=== PATIENT | female | born 1955 | race African-American/Black ===

== ENCOUNTER 2018-04-23 08:46 | Outpatient (CLI) | payer BC ==
--- NOTE | 2018-04-23 11:26 | MMO ---
BILATERAL DIGITAL SCREENING MAMMOGRAMS: Date: 04/23/18 This patient's mammogram was interpreted with the assistance of computer-aided detection. Comparison made with exams of 05/31/16 and 07/25/14. FINDINGS: There are scattered fibroglandular densities with benign calcifications. No suspicious masses or calc ifications are seen. No architectural distortion is identified. IMPRESSION: BIRADS 2: Benign Finding(s) Return to annual mammographic screening. Exam interpreted in consultation with Dr. Ashley Flynn and Dr. Dustin Palomo, who concur. POS: [facility]
== END 2018-04-23 08:47 | disposition home or self-care (01) ==
LOC: SCSMAMMO 08:46
PROVIDERS: ATTEND Family Medicine
DX: Z12.31 Encounter for screening mammogram for malignant neoplasm of breast (principal)
CPT/HCPCS: 77067

== ENCOUNTER 2019-04-10 14:00 | Outpatient (CLI) | payer BC ==
[2019-04-10 14:29] LABS: #Basophils 0.1 thou/uL (0.0-0.2); #Eosinphils 0.1 thou/uL (0.0-0.7); #Monocytes 0.2 thou/uL (0.11-0.59); #Neutrophils 3.3 thou/uL (1.40-6.50); %Basophils 1.6 % (0.0-1.0); %Lymphocytes 34.4 % (21.0-51.0); %Monocytes 4.1 % (0.0-10.0); Hemoglobin 13.1 g/dL (12.0-16.0); Mean Corpuscular HGB CONC 33.5 g/dL (32.0-36.0); Mean Corpuscular Hemoglobin 30.4 pg (27.0-31.0); Mean Corpuscular Volume 90.7 fL (78.0-98.0); Mean Platelet Volume 5.6 fL (7.4-10.4); Platelet Count 324 thou/uL (130-400); RBC Distribution Width 11.9 % (11.5-14.5); Red Blood Cell (RBC) Count 4.33 mill/uL (4.20-5.40); White Blood Cell (WBC) Count 5.7 thou/uL (4.8-10.8)
[2019-04-10 14:34] LABS: PTT 26.7 SEC (22.9-36.1); Prothrombin Time 13.5 SEC (12.0-14.7)
[2019-04-10 14:40] LABS: ALT (SGPT) 11 U/L (8-55); AST (SGOT) 13 U/L (5-34); Albumin 4.6 g/dL (3.4-4.8); Alkaline Phosphatase 90 U/L (40-150); Anion Gap 14 mmol/L (10-20); BUN (Urea Nitrogen) 16 mg/dL (9.8-20.1); Bilirubin, Total 0.5 mg/dL (0.2-1.2); Calc. Creatinine Clearance 0 mL/min (70-130); Calcium 10.1 mg/dL (7.8-10.44); Carbon Dioxide 27 mmol/L (23-31); Chloride 105 mmol/L (98-107); Estimated GFR-MDRD Greater than 90; Globulin 3.3 g/dL (2.4-3.5); Glucose 98 mg/dL (80-115); Potassium 3.8 mmol/L (3.5-5.1); Protein, Total 7.9 g/dL (6.0-8.3); Sodium 142 mmol/L (136-145)
--- NOTE | 2019-04-10 15:56 | RAD ---
RADIOGRAPH CHEST 2 VIEWS: 04/10/19 HISTORY: 63-year-old female for preoperative evaluation. FINDINGS: There is no air space density, pulmonary edema, pleural effusion, pneumothorax, or cardiomegaly. IMPRESSION: No acute cardiopulmonary findings. jn [] POS: [facility]
[2019-04-10 16:39] LABS: Hemoglobin A1c 5.6 % (4.0-6.0)
== END 2019-04-10 14:01 | disposition home or self-care (01) ==
LOC: SCSRAD 14:00
PROVIDERS: ATTEND Family Medicine
DX: M48.061 Spinal stenosis, lumbar region without neurogenic claudication (principal); E11.9 Type 2 diabetes mellitus without complications; M51.26 Other intervertebral disc displacement, lumbar region
CPT/HCPCS: 36415; 71046; 80053; 83036; 85025; 85610; 85730; 86850; 86900; 86901

== ENCOUNTER 2019-04-15 13:16 | Outpatient (CLI) | payer BC ==
--- NOTE | 2019-04-15 13:49 | CT ---
CT Lumbar Spine WO Con History: Spinal stenosis Comparison: None. Findings: The aortic contour is nonaneurysmal. No retroperitoneal adenopathy. No hydronephrosis. No fracture. No malalignment. There is narrowing of the interspinous space through out the lumbar spine. Levels are as follows: L1/L2: Mild degenerative disc space height loss. Moderate hypertrophic facet changes. Moderate bilate ral neural foraminal narrowing. Spinal canal narrowing evaluation is limited. L2-3: Circumferential disc height loss and disc bulge. Moderate facet arthropathy. Moderate bilateral neural foraminal narrowing. There is mild effacement of ventral CSF space and the spinal canal measuring 8 mm. L3/L4: Moderate changes space height loss. Circumferential disc bulge. Severe facet arthropathy. 2 mm anterolisthesis. Moderate to severe bilateral neural foraminal narrowing. Spinal canal is narrowed to approximate 6 mm. L4-5: There is large central disc extrusion with craniad extension. Severe narrowing of the spinal ca nal to approximately 3 mm. Severe facet arthropathy. Severe right and moderate to severe left neural foraminal narrowing. There is also 2 mm anterolisthesis. L5/S1: Moderate degenerative disc space height loss is circumferential disc bulge. Severe facet arthr opathy. Moderate bilateral neural foraminal narrowing. Impression: Multilevel high-grade spondylosis worst at L4/L with suggestion of a disc extrusion with craniad extension causing severe spinal canal narrowing and neural foraminal narrowing. Neurosurgical consultation advised.
--- NOTE | 2019-04-15 14:25 | RAD ---
EXAM: Anterior and lateral views of the thoracic and lumbosacral spine (scoliosis series) HISTORY: Spinal stenosis at L4/5 COMPARISON: None FINDINGS: Anterior and lateral views of the thoracic and lumbar spine shows normal height and alignme nt of the vertebral bodies without fracture or subluxation. No significant scoliosis is seen. Mild narrowing and intervertebral disc spaces is seen in the thoracic spine with moderate narrowing in the lumbar spine. Small osteophytes are seen throughout. IMPRESSION: Degenerative changes of the spine without acute osseous abnormality.
== END 2019-04-15 13:17 | disposition home or self-care (01) ==
LOC: CT 13:16
PROVIDERS: ATTEND Family Medicine
DX: M48.061 Spinal stenosis, lumbar region without neurogenic claudication (principal); M51.26 Other intervertebral disc displacement, lumbar region; M47.816 Spondylosis without myelopathy or radiculopathy, lumbar region
CPT/HCPCS: 72081; 72131

== ENCOUNTER 2019-05-27 13:21 | Outpatient (CLI) | payer BC ==
[2019-05-27 13:52] LABS: Hemoglobin 11.7 g/dL (12.0-16.0); Mean Corpuscular HGB CONC 32.8 g/dL (32.0-36.0); Mean Corpuscular Hemoglobin 29.7 pg (27.0-31.0); Mean Corpuscular Volume 90.5 fL (78.0-98.0); Mean Platelet Volume 5.8 fL (7.4-10.4); Platelet Count 357 thou/uL (130-400); RBC Distribution Width 14.5 % (11.5-14.5); Red Blood Cell (RBC) Count 3.94 mill/uL (4.20-5.40); White Blood Cell (WBC) Count 4.7 thou/uL (4.8-10.8)
[2019-05-27 14:08] LABS: ALT (SGPT) 10 U/L (8-55); AST (SGOT) 13 U/L (5-34); Albumin 4.5 g/dL (3.4-4.8); Alkaline Phosphatase 126 U/L (40-150); Anion Gap 13 mmol/L (10-20); BUN (Urea Nitrogen) 10 mg/dL (9.8-20.1); Bilirubin, Direct 0.2 mg/dL (0.1-0.3); Bilirubin, Total 0.4 mg/dL (0.2-1.2); Calc. Creatinine Clearance 0 mL/min (70-130); Carbon Dioxide 26 mmol/L (23-31); Cardiac Risk 3.3 (Less than 4.5); Chloride 108 mmol/L (98-107); Cholesterol 201 mg/dl (< 200 Desired); Estimated GFR-MDRD 88; Globulin 3.4 g/dL (2.4-3.5); Glucose 106 mg/dL (80-115); HDL Cholesterol 61 mg/dL (>60 Neg Risk); LDL Cholesterol, Calculated 124 mg/dL; Potassium 3.6 mmol/L (3.5-5.1); Protein, Total 7.9 g/dL (6.0-8.3); Sodium 143 mmol/L (136-145); Triglycerides 78 mg/dL (Less than 150)
[2019-05-27 14:43] LABS: Thyroid Stimulating Hormone 0.7622 uIU/mL (0.35-4.94)
--- NOTE | 2019-05-27 15:50 | RAD ---
LUMBAR SPINE 2 VIEWS: Date: 05/27/19 HISTORY: Lumbar pain. Postop imaging. Lumbar surgery 04/18/19. FINDINGS: Postoperative changes are noted in the lower lumbar spine. Pedicle screws and rods transfix L3, L4, a nd L5. Interbody implants at L3-4 and L4-5 are noted. Slight scoliotic curvature is again seen at thoracolumbar spine. The lumbar vertebra maintain height in the lateral view. There is a slight anterolisthesis at L3-4 an d at L4-5. Minimal anterolisthesis L5-S1 is unchanged. Mild degenerative osteophytes. IMPRESSION: Postoperative changes and degenerative changes as described. POS: [facility]
[2019-05-27 16:39] LABS: Vitamin D, 25 Hydroxy 45.6 ng/ml (> 30.0)
[2019-05-27 16:55] LABS: Folate (Folic Acid) 13.9 ng/mL (7.0-31.4)
== END 2019-05-27 13:22 | disposition home or self-care (01) ==
LOC: SCSRAD 13:21
DX: E56.9 Vitamin deficiency, unspecified (principal); M47.816 Spondylosis without myelopathy or radiculopathy, lumbar region; Z98.1 Arthrodesis status; Z79.899 Other long term (current) drug therapy
CPT/HCPCS: 72100; 80053; 80061; 82248; 82306; 82607; 82746; 84425; 84443; 85027

== ENCOUNTER 2019-05-29 10:49 | Outpatient (CLI) | payer BC ==
--- NOTE | 2019-05-29 12:15 | BD ---
DEXA BONE DENSITY STUDY: Date: 05/29/19 HISTORY: 64-year-old postmenopausal female for screening. COMPARISON: None. FINDINGS: LEFT HIP: Femoral Neck: 0.770 T-Score: -0.7 Total Femur: 0.916 T-Score: -0.2 RIGHT HIP: Femoral Neck: 0.710 T-Score: -1.3 Total Femur: 0.915 T-Score: -0.2 IMPRESSION: Osteopenia. This patient has a 10 year WHO fracture risk of a major osteoporotic fracture of 7.9% and hip fracture is 0.6%. POS: [facility]
== END 2019-05-29 10:50 | disposition home or self-care (01) ==
LOC: BICMAMMO 10:49
PROVIDERS: ATTEND Family Medicine
DX: M81.0 Age-related osteoporosis without current pathological fracture (principal); M85.852 Other specified disorders of bone density and structure, left thigh; M85.851 Other specified disorders of bone density and structure, right thigh
CPT/HCPCS: 77080

== ENCOUNTER 2019-08-09 15:20 | Outpatient (CLI) | payer BC ==
[~2019-08-09 15:20] MED LIST: Iopamidol 370 76% 100 ML VIAL ONE
[2019-08-09 16:00] LABS: Estimated GFR-MDRD - POC Greater than 90
--- NOTE | 2019-08-09 17:07 | CT ---
CT neck soft tissues with contrast: DATE: 08/09/2019 HISTORY: 64-year-old female with ICD-10: "Kidney 11.1, submandibular gland hypertrophy" Patient told the public health technologist that there is a left-sided neck mass 2 weeks ago, but currently not palpable. COMPARISON: None available FINDINGS: At midline of the submandibular space, just deep to the platysma muscle and superficial to the anteri or bellies of the digastric muscles, there is a soft tissue density lobular small mass measuring approximately 1 x 1 x 0.7 cm. There are mildly prominent blood vessels around this. No associated shalonda cification or surrounding edema. Etiology of this is uncertain. It is located 3 cm posterior to the mandibular symphysis, which is not a typical location for level 1 submental lymph nodes. Otherwise, there is no cervical lymphadenopathy elsewhere. The bilateral submandibular glands are slightly large, but with no evidence of discrete mass or surro unding fat stranding. The sublingual glands are bilaterally also symmetrically enlarged. The parotid, carotid, retropharyngeal, parapharyngeal, pharyngeal mucosal, wheel roller, and posterior cerv ical, spaces, are unremarkable. Thyroid gland is diffusely mildly to moderately large, especially the right lobe. Unremarkable larynx. IMPRESSION: 1.) Bilaterally symmetrical enlargement of submandibular and sublingual glands, nonspecific. 2) a small soft tissue density mass at midline submandibular space of unknown etiology. Perhaps this represents enlarged lymph node, but the location and appearance is unusual. The other possibility includes small vascular malformation. Recommend serial follow-up CTs of the neck, beginning in 4 lisa hs.
== END 2019-08-09 15:21 | disposition home or self-care (01) ==
LOC: SCSCT 15:20
PROVIDERS: ATTEND Student in an Organized Health Care Education/Training Program
DX: K11.1 Hypertrophy of salivary gland (principal); M79.89 Other specified soft tissue disorders
CPT/HCPCS: 70491; 82565; Q9967

== ENCOUNTER 2021-10-10 19:35 | Emergency (ER) | payer OTHER, BC | END 2021-10-10 21:49 | disposition home or self-care (01) | LOC: ERS 19:35 | DX: S09.90XA Unspecified injury of head, initial encounter (principal); I10 Essential (primary) hypertension; E11.9 Type 2 diabetes mellitus without complications; K21.9 Gastro-esophageal reflux disease without esophagitis; E78.5 Hyperlipidemia, unspecified; Z87.891 Personal history of nicotine dependence; V49.9XXA Car occupant (driver) (passenger) injured in unspecified traffic accident, initial encounter | CPT/HCPCS: 99283 ==

== ENCOUNTER 2022-06-26 21:29 | Inpatient (IN) | payer BC ==
[~2022-06-26 21:29] MED LIST changes: -Iopamidol 370 76% 100 ML VIAL ONE; +Iopamidol-370 76% 500 ML 1 ML ONE
[2022-06-26] MEDS ORDERED: Ondansetron PF 4 MG/2 ML Vial ONE (22:49)
[2022-06-26] MEDS ORDERED: Morphine 4 MG/ML VIAL ONE (22:49)
[2022-06-26 23:04] LABS: #Lymphocytes 1.6 thou/uL (1.20-3.40); #Monocytes 0.4 thou/uL (0.11-0.59); #Neutrophils 10.7 thou/uL (1.40-6.50); %Basophils 0.1 % (0.0-1.0); %Eosinophils 0.1 % (0.0-10.0); %Lymphocytes 12.2 % (21.0-51.0); %Monocytes 3.2 % (0.0-10.0); %Neutrophils 84.4 % (42.0-75.0); Mean Corpuscular HGB CONC 34.5 g/dL (32.0-36.0); Mean Corpuscular Hemoglobin 33.2 pg (27.0-31.0); Mean Corpuscular Volume 96.1 fL (78.0-98.0); Mean Platelet Volume 7.1 fL (7.4-10.4); Platelet Count 289 thou/uL (130-400); RBC Distribution Width 12.1 % (11.5-14.5); Red Blood Cell (RBC) Count 4.21 mill/uL (4.20-5.40); White Blood Cell (WBC) Count 12.7 thou/uL (4.8-10.8)
[2022-06-26 23:23] LABS: Acetaminophen Less than 10.0 mcg/mL (10.0-30.0); Alcohol Less than 10 mg/dL (Less than 10); CK (CPK) 161 U/L (29-168); Salicylate Less than 8.0 mg/dL (15.0-30.0)
[2022-06-26 23:25] LABS: ALT (SGPT) 13 U/L (8-55); AST (SGOT) 19 U/L (5-34); Albumin 4.7 g/dL (3.4-4.8); Alkaline Phosphatase 99 U/L (40-110); Anion Gap 15 mmol/L (10-20); BUN (Urea Nitrogen) 9 mg/dL (9.8-20.1); Bilirubin, Total 0.7 mg/dL (0.2-1.2); Calc. Creatinine Clearance 0 mL/min (70-130); Calcium 10.1 mg/dL (7.8-10.44); Carbon Dioxide 25 mmol/L (23-31); Chloride 103 mmol/L (98-107); Estimated GFR 78; Globulin 3.3 g/dL (2.4-3.5); Glucose 184 mg/dL (80-115); Potassium 3.4 mmol/L (3.5-5.1); Sodium 140 mmol/L (136-145)
[2022-06-26 23:57] LABS: Bilirubin Negative (Negative); Blood, Urine Negative (Negative); Clarity Extra Turbid (Clear); Glucose, Urine (Dipstick) 200 mg/dL (Negative); Ketone, Urine 10 mg/dL (Negative); Leukocyte Negative Leu/uL (Negative); Nitrite Negative (Negative); Protein, Urine (Dipstick) Negative (Neg-Trace); Specific Gravity, Urine 1.012 (1.002-1.036); Urobilinogen Normal mg/dL (Less than 2)
[2022-06-27 00:06] LABS: Amphetamine Not Detected (NotDetected); Barbiturates Screen Not Detected (NotDetected); Benzodiazepine Screen Not Detected (NotDetected); Cocaine Metabolite Screen Not Detected (NotDetected); Methadone Not Detected (NotDetected); Methamphetamine Not Detected (NotDetected); Opiate Screen Not Detected (NotDetected); Oxycodone Screen Not Detected (NotDetected); Phencyclidine (PCP) Not Detected (NotDetected); THC/Cannabinoid Screen Not Detected (NotDetected); Tricyclic Screen Not Detected (NotDetected)
[2022-06-27] MEDS ORDERED: Benzocaine 20% Spray 60 ML CAN ONE (01:42)
[2022-06-27] MEDS ORDERED: hydrALAZINE 20 MG/ML VIAL ONE (01:57)
[2022-06-27] MEDS ORDERED: Ondansetron PF 4 MG/2 ML Vial ONE (02:59)
[2022-06-27] MEDS ORDERED: Morphine 2 MG/ML VIAL ONE (03:14)
[2022-06-27] MEDS ORDERED: Acetaminophen 650 MG Suppository PR PRN (03:40)
[2022-06-27] MEDS ORDERED: Dextrose 5% in Water 1,000 ML IV PRN (03:42)
[2022-06-27] MEDS ORDERED: HumaLOG 300 UNITS/3 ML VIAL SC PRN ×2 (03:42)
[2022-06-27] MEDS ORDERED: Dextrose 50% Abboject 50 ML SYRINGE SLOW IVP PRN (03:42)
[2022-06-27] MEDS: Sodium Chloride 0.9% 1,000 ML IV SCH ×2 (05:11→14:52)
[2022-06-27 06:16] LABS: #Lymphocytes 0.5 thou/uL (1.20-3.40); #Monocytes 0.2 thou/uL (0.11-0.59); #Neutrophils 10.1 thou/uL (1.40-6.50); %Eosinophils 0.1 % (0.0-10.0); %Lymphocytes 4.9 % (21.0-51.0); %Monocytes 1.7 % (0.0-10.0); %Neutrophils 93.3 % (42.0-75.0); Hemoglobin 12.9 g/dL (12.0-16.0); Mean Corpuscular Hemoglobin 32.5 pg (27.0-31.0); Mean Corpuscular Volume 95.4 fL (78.0-98.0); Platelet Count 257 thou/uL (130-400); Red Blood Cell (RBC) Count 3.98 mill/uL (4.20-5.40); White Blood Cell (WBC) Count 10.9 thou/uL (4.8-10.8)
[2022-06-27 06:38] LABS: Anion Gap 16 mmol/L (10-20); BUN (Urea Nitrogen) 7 mg/dL (9.8-20.1); Calc. Creatinine Clearance 0 mL/min (70-130); Calcium 9.5 mg/dL (7.8-10.44); Carbon Dioxide 24 mmol/L (23-31); Chloride 103 mmol/L (98-107); Estimated GFR 79; Glucose 139 mg/dL (80-115); Potassium 3.7 mmol/L (3.5-5.1); Sodium 139 mmol/L (136-145)
[2022-06-27] MEDS ORDERED: hydrALAZINE 20 MG/ML VIAL SLOW IVP PRN (07:03)
[2022-06-27 07:25] VITALS: BMI 22.4
[2022-06-27] MEDS ORDERED: Chloraseptic Spray 180 ml Bottle PO PRN (14:16)
[2022-06-27] MEDS: Ondansetron PF 4 MG/2 ML Vial IVP PRN (17:42)
[2022-06-27] MEDS: Morphine 2 MG/ML VIAL SLOW IVP PRN (20:10)
[2022-06-28] MEDS: Ondansetron PF 4 MG/2 ML Vial IVP PRN ×2 (00:21→13:30)
[2022-06-28] MEDS: Sodium Chloride 0.9% 1,000 ML IV SCH ×3 (01:48→21:23)
[2022-06-28 06:09] LABS: Anion Gap 13 mmol/L (10-20); BUN (Urea Nitrogen) 9 mg/dL (9.8-20.1); Calc. Creatinine Clearance 77 mL/min (70-130); Calcium 9.1 mg/dL (7.8-10.44); Carbon Dioxide 24 mmol/L (23-31); Chloride 108 mmol/L (98-107); Estimated GFR 93; Glucose 97 mg/dL (80-115); Sodium 142 mmol/L (136-145)
[2022-06-28 06:21] LABS: Band 1 % (5-11); Eosinophils 2 % (0-10); Hemoglobin 11.8 g/dL (12.0-16.0); Lymphocytes 40 % (21-51); MDiff Complete? YES; Mean Corpuscular HGB CONC 34.2 g/dL (32.0-36.0); Mean Corpuscular Hemoglobin 32.7 pg (27.0-31.0); Mean Corpuscular Volume 95.7 fL (78.0-98.0); Mean Platelet Volume 7.1 fL (7.4-10.4); Monocytes 5 % (0-10); Neutrophil 37 % (42-75); Platelet Count 235 thou/uL (130-400); Platelet Morphology Comment Appears Adequate; RBC Distribution Width 11.9 % (11.5-14.5); RBC Morphology Normal; Reactive Lymphocytes 13 % (0-10); Red Blood Cell (RBC) Count 3.61 mill/uL (4.20-5.40); White Blood Cell (WBC) Count 3.9 thou/uL (4.8-10.8)
[2022-06-28] MEDS ORDERED: Potassium Chloride 20 MEQ in Premix Bag 1 BAG IVPB SCH (08:00)
[2022-06-28] MEDS ORDERED: MD-Gastroview 120 ML BOT ONE (13:23)
[2022-06-28] MEDS: Morphine 2 MG/ML VIAL SLOW IVP PRN (13:29)
[2022-06-29] MEDS: Sodium Chloride 0.9% 1,000 ML IV SCH (02:22)
[2022-06-29 06:08] LABS: Hemoglobin 12.3 g/dL (12.0-16.0); Lymphocytes 68 % (21-51); MDiff Complete? YES; Mean Corpuscular HGB CONC 33.7 g/dL (32.0-36.0); Mean Corpuscular Hemoglobin 32.5 pg (27.0-31.0); Mean Corpuscular Volume 96.5 fL (78.0-98.0); Neutrophil 32 % (42-75); Platelet Count 241 thou/uL (130-400); Platelet Morphology Comment Appears Adequate; RBC Distribution Width 11.7 % (11.5-14.5); RBC Morphology Normal; Red Blood Cell (RBC) Count 3.79 mill/uL (4.20-5.40); White Blood Cell (WBC) Count 3.8 thou/uL (4.8-10.8)
[2022-06-29 06:12] LABS: Chloride 108 mmol/L (98-107); Potassium 3.6 mmol/L (3.5-5.1); Sodium 141 mmol/L (136-145)
[2022-06-29 06:21] LABS: BUN (Urea Nitrogen) 8 mg/dL (9.8-20.1); Calc. Creatinine Clearance 74 mL/min (70-130); Calcium 9.2 mg/dL (7.8-10.44); Carbon Dioxide 20 mmol/L (23-31); Estimated GFR 88; Glucose 86 mg/dL (80-115)
[2022-06-29 06:39] LABS: Anion Gap 17 mmol/L (10-20)
[2022-06-29 08:41] VITALS: TEMP 97.8
[2022-06-29 12:54] VITALS: BP 176/74
== END 2022-06-29 15:00 | disposition home or self-care (01) | DRG 390 ==
LOC: ERS 21:29 → SURG A 06-27 01:26
PROVIDERS: ADMIT Internal Medicine; ATTEND Internal Medicine
PROC: 0D9670Z Drainage of Stomach with Drainage Device, Via Natural or Artificial Opening (ICD-10-PCS; principal; 2022-06-27)
DX: K56.51 Intestinal adhesions [bands], with partial obstruction (principal); E11.9 Type 2 diabetes mellitus without complications; K21.9 Gastro-esophageal reflux disease without esophagitis; E78.5 Hyperlipidemia, unspecified; Z66 Do not resuscitate; I10 Essential (primary) hypertension; Z98.890 Other specified postprocedural states; Z90.710 Acquired absence of both cervix and uterus; Z88.1 Allergy status to other antibiotic agents; Z88.8 Allergy status to other drugs, medicaments and biological substances; Z79.899 Other long term (current) drug therapy
CPT/HCPCS: 36415; 36416; 71045; 74018; 74177; 74250; 80048; 80053; 80306; 80307; 81003; 82550; 83605; 84484; 85025; 86850; 86900; 86901; 93005; 94760; J0360; J2270; J2405; J3480; J7050; Q9963; Q9967

== ENCOUNTER 2023-06-21 06:32 | Inpatient (IN) | payer BC ==
[2023-06-21 07:29] LABS: #Monocytes 0.1 thou/uL (0.11-0.59); #Neutrophils 10.4 thou/uL (1.40-6.50); %Basophils 0.1 % (0.0-1.0); %Lymphocytes 4.4 % (21.0-51.0); %Monocytes 1.1 % (0.0-10.0); %Neutrophils 94.1 % (42.0-75.0); Hematocrit 41.7 % (36.0-47.0); Hemoglobin 14.3 g/dL (12.0-16.0); Mean Corpuscular HGB CONC 34.3 g/dL (32.0-36.0); Mean Corpuscular Hemoglobin 31.4 pg (27.0-31.0); Mean Corpuscular Volume 91.6 fl (78.0-98.0); Platelet Count 312 10x3/uL (130-400); RBC Distribution Width 11.9 % (11.5-14.5); Red Blood Cell (RBC) Count 4.55 mill/uL (4.20-5.40); White Blood Cell (WBC) Count 11.1 10x3/uL (4.8-10.8)
[2023-06-21 07:50] LABS: ALT (SGPT) 11 U/L (8-55); AST (SGOT) 19 U/L (5-34); Albumin 4.8 g/dL (3.4-4.8); Alkaline Phosphatase 104 U/L (40-110); Anion Gap 16 mmol/L (10-20); BUN (Urea Nitrogen) 15 mg/dL (9.8-20.1); Bilirubin, Total 0.5 mg/dL (0.2-1.2); Calc. Creatinine Clearance 0 mL/min (70-130); Calcium 10.1 mg/dL (7.8-10.44); Carbon Dioxide 21 mmol/L (23-31); Chloride 100 mmol/L (98-107); Estimated GFR 58; Globulin 3.5 g/dL (2.4-3.5); Glucose 181 mg/dL (80-115); Lipase Less than 4 U/L (8-78); Potassium 4.2 mmol/L (3.5-5.1); Protein, Total 8.3 g/dL (5.8-8.1); Sodium 133 mmol/L (136-145)
[2023-06-21] MEDS ORDERED: Ondansetron PF 4 MG/2 ML Vial ONE (08:19)
[2023-06-21] MEDS ORDERED: Morphine 4 MG/ML VIAL ONE (08:19)
[2023-06-21 08:29] LABS: Troponin I Less than 0.010 ng/mL (< 0.028)
[2023-06-21] MEDS ORDERED: Iopamidol-370 76% 500 ML MDV (1 ML CHARGE) ONE (09:19)
[2023-06-21] MEDS ORDERED: Acetaminophen 325 MG TAB PO PRN (09:59)
[2023-06-21] MEDS ORDERED: Ondansetron ODT 4 MG TAB PO PRN (09:59)
[2023-06-21] MEDS ORDERED: MD-Gastroview 120 ML BOT ONE (10:00)
[2023-06-21] MEDS ORDERED: Phenol 118 ML BOT PO PRN (10:05)
[2023-06-21] MEDS ORDERED: Lidocaine 4% Topical Sol 50 ML BOT TOP SCH (11:15)
[2023-06-21] MEDS: Ondansetron PF 4 MG/2 ML Vial IVP PRN (13:35)
[2023-06-21] MEDS: Morphine 4 MG/ML VIAL SLOW IVP PRN (13:35)
[2023-06-21] MEDS: Sodium Chloride 0.9% 1,000 ML IV SCH (13:36)
[2023-06-21 16:55] VITALS: BMI 24.8
[2023-06-22] MEDS: Sodium Chloride 0.9% 1,000 ML IV SCH ×2 (00:49→13:01)
[2023-06-22] MEDS: Morphine 4 MG/ML VIAL SLOW IVP PRN ×3 (02:14→20:39)
[2023-06-22] MEDS: Ondansetron PF 4 MG/2 ML Vial IVP PRN ×3 (02:15→20:39)
[2023-06-22] MEDS ORDERED: Glucagon 1 MG/ML KIT IM PRN (07:34)
[2023-06-22] MEDS ORDERED: Dextrose 50% Abboject 50 ML SYRINGE SLOW IVP PRN (07:34)
[2023-06-22] MEDS ORDERED: Dextrose 5% in Water 1,000 ML IV PRN (07:34)
[2023-06-22 09:10] LABS: #Monocytes 0.5 thou/uL (0.11-0.59); #Neutrophils 4.5 thou/uL (1.40-6.50); %Basophils 0.3 % (0.0-1.0); %Eosinophils 0.2 % (0.0-10.0); %Lymphocytes 21.7 % (21.0-51.0); %Neutrophils 69.8 % (42.0-75.0); Hematocrit 37.1 % (36.0-47.0); Hemoglobin 12.6 g/dL (12.0-16.0); Mean Corpuscular Hemoglobin 31.6 pg (27.0-31.0); Mean Platelet Volume 9.1 fL (7.4-10.4); Platelet Count 284 10x3/uL (130-400); RBC Distribution Width 12.4 % (11.5-14.5); Red Blood Cell (RBC) Count 3.99 mill/uL (4.20-5.40); White Blood Cell (WBC) Count 6.4 10x3/uL (4.8-10.8)
[2023-06-22 09:38] LABS: Anion Gap 14 mmol/L (10-20); BUN (Urea Nitrogen) 22 mg/dL (9.8-20.1); Calc. Creatinine Clearance 60 mL/min (70-130); Calcium 9.4 mg/dL (7.8-10.44); Carbon Dioxide 23 mmol/L (23-31); Chloride 110 mmol/L (98-107); Estimated GFR 61; Glucose 104 mg/dL (80-115); Potassium 3.6 mmol/L (3.5-5.1); Sodium 143 mmol/L (136-145)
[2023-06-22] MEDS: Benzocaine/Menthol 1 LOZ LOZ PO PRN (18:30)
[2023-06-22] MEDS ORDERED: Lidocaine 2% Viscous Solution 10 ML, Aluminum & Magnesium Hydroxide 30 ML SSW SCH (23:30)
[2023-06-23] MEDS: Morphine 4 MG/ML VIAL SLOW IVP PRN ×2 (00:31→04:45)
[2023-06-23] MEDS: Sodium Chloride 0.9% 1,000 ML IV SCH ×2 (02:04→08:56)
[2023-06-23] MEDS: Ondansetron PF 4 MG/2 ML Vial IVP PRN ×2 (04:45→10:53)
[2023-06-23 06:56] LABS: #Monocytes 0.4 thou/uL (0.11-0.59); #Neutrophils 4.7 thou/uL (1.40-6.50); %Basophils 0.3 % (0.0-1.0); %Eosinophils 0.4 % (0.0-10.0); %Lymphocytes 26.4 % (21.0-51.0); %Monocytes 6.2 % (0.0-10.0); %Neutrophils 66.6 % (42.0-75.0); Hematocrit 34.6 % (36.0-47.0); Hemoglobin 11.5 g/dL (12.0-16.0); Mean Corpuscular HGB CONC 33.2 g/dL (32.0-36.0); Mean Corpuscular Hemoglobin 31.3 pg (27.0-31.0); Mean Platelet Volume 8.7 fL (7.4-10.4); Platelet Count 229 10x3/uL (130-400); RBC Distribution Width 12.3 % (11.5-14.5); Red Blood Cell (RBC) Count 3.68 mill/uL (4.20-5.40); White Blood Cell (WBC) Count 7.1 10x3/uL (4.8-10.8)
[2023-06-23 07:25] LABS: Anion Gap 11 mmol/L (10-20); BUN (Urea Nitrogen) 12 mg/dL (9.8-20.1); Calc. Creatinine Clearance 85 mL/min (70-130); Calcium 8.8 mg/dL (7.8-10.44); Carbon Dioxide 23 mmol/L (23-31); Chloride 108 mmol/L (98-107); Estimated GFR 92; Glucose 100 mg/dL (80-115); Potassium 3.1 mmol/L (3.5-5.1); Sodium 139 mmol/L (136-145)
[2023-06-23 08:55] LABS: Phosphorus 2.9 mg/dL (2.3-4.7)
[2023-06-23] MEDS: Potassium Chloride 20 MEQ in Premix Bag 1 BAG IVPB SCH ×2 (08:57→11:58)
[2023-06-23] MEDS: Benzocaine/Menthol 1 LOZ LOZ PO PRN (08:58)
[2023-06-23] MEDS ORDERED: Lidocaine 2% Viscous Solution 20 ML, Aluminum & Magnesium Hydroxide 30 ML, Donnatal Eli... SSW PRN (09:09)
[2023-06-23] MEDS: Lidocaine 2% Viscous Solution 10 ML, Aluminum & Magnesium Hydroxide 30 ML SSW PRN (09:37)
[2023-06-23] MEDS: NS 0.9% w/ 40 MEQ KCL 1,000 ML IV SCH (11:57)
[2023-06-24] MEDS: NS 0.9% w/ 40 MEQ KCL 1,000 ML IV SCH (00:59)
[2023-06-24] MEDS: Morphine 4 MG/ML VIAL SLOW IVP PRN (02:19)
[2023-06-24] MEDS: Lidocaine 2% Viscous Solution 10 ML, Aluminum & Magnesium Hydroxide 30 ML SSW PRN (05:03)
[2023-06-24 07:52] LABS: #Monocytes 0.3 thou/uL (0.11-0.59); #Neutrophils 2.6 thou/uL (1.40-6.50); %Basophils 0.6 % (0.0-1.0); %Eosinophils 0.6 % (0.0-10.0); %Lymphocytes 41.2 % (21.0-51.0); %Monocytes 5.7 % (0.0-10.0); %Neutrophils 51.7 % (42.0-75.0); Hemoglobin 11.2 g/dL (12.0-16.0); Mean Corpuscular HGB CONC 33.9 g/dL (32.0-36.0); Mean Corpuscular Hemoglobin 31.5 pg (27.0-31.0); Mean Corpuscular Volume 92.7 fl (78.0-98.0); Mean Platelet Volume 9.3 fL (7.4-10.4); Platelet Count 232 10x3/uL (130-400); RBC Distribution Width 11.8 % (11.5-14.5); Red Blood Cell (RBC) Count 3.56 mill/uL (4.20-5.40); White Blood Cell (WBC) Count 5.1 10x3/uL (4.8-10.8)
[2023-06-24 08:07] LABS: Anion Gap 10 mmol/L (10-20); BUN (Urea Nitrogen) 6 mg/dL (9.8-20.1); Calc. Creatinine Clearance 95 mL/min (70-130); Calcium 8.7 mg/dL (7.8-10.44); Carbon Dioxide 26 mmol/L (23-31); Chloride 106 mmol/L (98-107); Estimated GFR 97; Glucose 100 mg/dL (80-115); Potassium 3.7 mmol/L (3.5-5.1); Sodium 138 mmol/L (136-145)
[2023-06-24 11:57] VITALS: BP 168/82; TEMP 98.4
== END 2023-06-24 12:35 | disposition home or self-care (01) | DRG 390 ==
LOC: ERS 06:32 → T4-B 10:01
PROVIDERS: ADMIT Family Medicine; ATTEND Internal Medicine
DX: K56.609 Unspecified intestinal obstruction, unspecified as to partial versus complete obstruction (principal); E11.9 Type 2 diabetes mellitus without complications; K21.9 Gastro-esophageal reflux disease without esophagitis; E78.5 Hyperlipidemia, unspecified; I10 Essential (primary) hypertension; Z66 Do not resuscitate; Z88.1 Allergy status to other antibiotic agents; Z88.8 Allergy status to other drugs, medicaments and biological substances; Z90.710 Acquired absence of both cervix and uterus; Z98.890 Other specified postprocedural states; Z80.0 Family history of malignant neoplasm of digestive organs
CPT/HCPCS: 36415; 36416; 74018; 74177; 74250; 80048; 80053; 83690; 83735; 84100; 84484; 85025; 93005; 96361; 96374; 96375; J2270; J2405; J3480; J7050

== ENCOUNTER 2025-07-02 10:43 | Outpatient (CLI) | payer BC | END 2025-07-02 10:44 | disposition home or self-care (01) | LOC: SCSBT 10:43 | PROVIDERS: ATTEND Family Medicine | DX: Z13.820 Encounter for screening for osteoporosis (principal); M85.851 Other specified disorders of bone density and structure, right thigh; M85.852 Other specified disorders of bone density and structure, left thigh | CPT/HCPCS: 77080 ==